=== PATIENT | male | born 1985 | race Hispanic/Latino ===

== ENCOUNTER 2024-11-25 11:48 | Day surgery (SDC) | payer OTHER, SELFPAY ==
--- NOTE | 2024-11-25 | PATH_ITS ---
[facility] Accession Number: [id number] No. of containers..01 Tissue . 01 Material submitted: . gastrointestinal site - ANTRUM . 01 Diagnosis: ANTRUM: Mild chronic gastritis. No Helicobacter pylori organisms identified on immunohistochemical evaluation. No intestinal metaplasia, dysplasia, or malignancy. . V 11/27/2024 1757 Local . 01 Electronically signed: . Mary Lr MD, Pathologist NPI- [id number] . 01 Gross description: . ANTRUM: Received in formalin are 2 fragment(s) of figueroa, soft tissue measuring 0.2 x 0.2 x 0.2 cm to 0.3 x 0.3 x 0.2 cm submitted entirely in 1 cassette(s) /AJ 11/26/20242002 Local . 01 Microscopic: . A. An immunohistochemical stain was performed to evaluate for Helicobacter organisms and is negative. The control stain showed appropriate reactivity. . * This test was developed and the performance characteristics were validated by [facility]. It has not been cleared or approved by the U.[place]. Food and Drug Administration. . 01 Pathologist provided ICD-10: K29.70 . 01 CPT . 431720, [id number] Specimen Comment: A courtesy copy of this report has been sent to [facility] Performed at: [address], [place], [place] [id number] MD Vidal Valencia MD Phone: [phone]
[2024-11-25 12:55] VITALS: BP 136/83; PULSE 60; RESP 16; TEMP 36.7; O2SAT 98
[2024-11-25] MEDS: LACTATED RINGERS 1,000 ML 42 ML IV (13:10)
--- NOTE | 2024-11-25 13:48 | PM.PREOP ---
Pre-operative Note Interval Note History & Physical reviewed/Exam performed by Physician: Yes Changes to H&P: No
--- NOTE | 2024-11-25 14:33 | PM.OP.EC ---
Operative Date/Time/Diagnoses Date of procedure: 11/25/24 Time of procedure: 14:33 Pre-op diagnosis: Change in bowel habits, GERD, blood in stool Post-op diagnosis: same (Mild gastritis, small hiatal hernia, Grade 3 prolapsed, bleeding internal hemorrhoids) Procedure & Clinicians Study performed: 1. EGD with biopsy 2. Colonoscopy 3. Anoscopy with rubber-band ligation of internal hemorrhoids x2 Same procedure as scheduled: Yes Indications: Blood in stool Surgeon: Koko De Los Santos Procedure Notes SCOAP/Timeout: Performed Procedure in detail: Time-out was performed. Mac was induced. Patient was placed in left lateral decubitus position. Bite block was placed. Gastroscope was placed through the bite block to the 2nd portion of the duodenal. Duodenal appeared to be normal. There was mild superficial gastritis of the antrum. Biopsies were obtained. Retroflexed view showed a very small hiatal hernia. The Z-line was approximately 36 cm from the incisors. The Z-line was regular. No esophageal abnormalities were noted. The gastroscope was removed. The perineum was inspected without any gross abnormality. Lubricated pediatric colonoscope was inserted and advanced to the cecum. The terminal ileum was intubated. The colonoscope was withdrawn slowly inspecting the circumference of the colon. Very small polyps may have been missed, prep quality was adequate. Retroflexed view of the rectum showed large, prolapsed internal hemorrhoids with stigmata of recent bleeding. Lubricated anoscope was inserted. Rubber-band ligation was performed using suctioned jig operator for hemorrhoids located in the posterior left quadrant and anterior left quadrant. Two bands were applied to each. The scope was withdrawn the patient was taken to PACU in good condition. Scope withdrawal time: 9 Findings: gastritis, hiatal hernia and internal hemorrhoids Specimen(s): other (antrum) Complications: none Impression: Mild gastritis, prolapsed internal hemorrhoids Post-procedure Recommendations: Colonscopy in 10 years and Start medication(s) (may take OTC Famotidine or Omeprazole as needed for reflux symptoms) Follow up: as needed Disposition: PACU
[2024-11-25 14:36] VITALS: BP 136/81; PULSE 65; RESP 20; TEMP 36.3; O2SAT 100
[2024-11-25 14:40] VITALS: BP 128/79; PULSE 67; RESP 18; O2SAT 100
[2024-11-25 14:45] VITALS: BP 130/78; PULSE 57; RESP 16; O2SAT 100
[2024-11-25 14:50] VITALS: BP 130/81; PULSE 56; RESP 18; TEMP 36.7; O2SAT 100
[2024-11-25] MEDS: OXYCODONE/ACETAMINOPHEN 5/325 TABLET 1 TAB PO (14:58)
[2024-11-25 15:07] VITALS: BP 122/83; PULSE 57; RESP 18; O2SAT 100
== END 2024-11-25 15:25 | disposition home or self-care (01) ==
PROVIDERS: Referring Provider Surgery; Visit Provider Surgery
PROC: 0DJ08ZZ Inspection of Upper Intestinal Tract, Via Natural or Artificial Opening Endoscopic (ICD-10-PCS; CPT 43239; principal; 2024-11-25 13:15)
PROC: 0DJD8ZZ Inspection of Lower Intestinal Tract, Via Natural or Artificial Opening Endoscopic (ICD-10-PCS; CPT 45378; 2024-11-25 13:15)
DX: K92.1 Melena (principal); K21.9 Gastro-esophageal reflux disease without esophagitis; K64.8 Other hemorrhoids; K29.70 Gastritis, unspecified, without bleeding; K44.9 Diaphragmatic hernia without obstruction or gangrene
CPT/HCPCS: 43239; 46221; J2704